=== PATIENT | female | born 1930 | race Hispanic/Latino ===

== ENCOUNTER 2017-06-29 11:43 | Day surgery (SDC) | payer MEDICARE ==
[~2017-06-29 11:43] MED LIST: AK-Dilate ONE; IOPIDINE ONE; MYDRIACYL ONE
[2017-06-29 12:20] VITALS: BP 128/68
[2017-06-29] MEDS ORDERED: IOPIDINE OD ONE (12:35)
[2017-06-29] MEDS ORDERED: MYDRIACYL OD ONE (12:36)
[2017-06-29] MEDS ORDERED: PHENYLEPHRINE HCL OD ONE (12:38)
== END 2017-06-29 12:45 | disposition home or self-care (01) ==
LOC: OR 11:43
PROVIDERS: ATTEND Ophthalmology
DX: H26.491 Other secondary cataract, right eye (principal); Z79.899 Other long term (current) drug therapy
CPT/HCPCS: 82962